=== PATIENT | female | born 1990 | race Caucasian/White ===

== ENCOUNTER 2023-10-01 09:55 | Emergency (ER) | payer BC, SELFPAY ==
[2023-10-01 09:56] VITALS: BP 119/65; PULSE 98; RESP 23; TEMP 36.2; O2SAT 100; BMI 23.8
--- NOTE | 2023-10-01 10:15 | EX.ED.DYSGE1 ---
HPI History of Present Illness Chief Complaint: Allergic Reaction Detail of Chief Complaint: Reported allergy to mold Informant: patient Onset/Context/Timing Onset: Hours Context: Sudden Onset Timing: Continuous Quality: Shortness of breath and tightness in chest Location: This occurred at work Current Severity: Moderate Maximum Severity: Moderate Worsened by: Exposure to mold Relieved by: Nothing Associated Symptoms Associated Symptoms: Patient states shortly after she noted the mold in felt tightness in her ch Narrative Narrative: Patient is a 32-year-old woman with allergy to mold. She was at work. There was broken bottles of tomato sauce that had mold growing on them. When she saw the mold she developed shortness of breath and chest tightness. She took a Benadryl. She presents because of paresthesia that is perioral, both hands and feet. She denies swelling of her lips, tongue or throat. She denies GI symptoms. She denies dermatologic lesions. Patient is second trimester . She receives her OB care through [facility]. 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 She does not know the name of her OB. Prior similar symptoms: Yes Recent Illness/Hospitalization: No PFSH PFSH Medical History no medical history Allergy/AdvReac Type Severity Reaction Status Date / Time mold Allergy COUGH Verified 10/01/23 10:01 Social History Smoking Status: Unknown if ever smoked ROS ROS ED Constitutional Constitutional ED: Denies chills or fever(s) Cardiovascular Cardiovascular: Denies orthopnea, palpitations, paroxysmal nocturnal dyspnea or racing heartbeat Respiratory/Chest Respiratory/Chest: Reports dyspnea; Denies cough, dyspnea on exertion, orthopnea or paroxysmal nocturnal dyspnea Gastrointestinal Gastrointestinal: Denies abdominal pain, diarrhea, nausea or vomiting Musculoskeletal Musculoskeletal: Denies back pain or neck pain Integumentary Denies rash Neurologic Neurologic: Reports paresthesias RUE, RLE, LUE and LLE and other Details: And perioral. Psychiatric Psychiatric: Reports anxiety Hematologic/Lymphatic Hematologic/Lymphatic: Reports systems reviewed and no addt'l complaints, except as documented EXAM Physical Exam Const Vital Signs: 10/01/23 09:56 Temperature 97.1 F L Temperature Source Oral Pulse Rate 98 Respiratory Rate 23 H Blood Pressure 119/65 Blood Pressure Mean 83 Pulse Ox 100 Oxygen Delivery Method Room Air Positive well nourished and well developed General Appearance ED: well developed, NAD and pallor; Negative for cyanotic or diaphoretic HEENT Reports moist mucous membranes HEENT Narrative: Head is atraumatic and. Ears normal. Nares patent. There is piercings noted. There is no evidence of angioedema i.e. spinal lips, tongue posterior pharynx or uvula. Patient has bilateral's Chvostek sign. Eyes PERRL and EOMs intact bilaterally General Eye ED: Negative for pale conjunctiva or scleral icterus Neck no lymphadenopathy, supple and no JVD Neck Narrative: Trachea is midline. There is no inspiratory expiratory stridor. Chest Wall inspection of chest normal Resp normal respiratory effort and clear to auscultation bilaterally Cardio regular rate, regular rhythm, S1 normal heart sound, S2 normal heart sound and no murmurs Extremity normal to inspection Extremity Narrative: There is no clubbing or cyanosis noted. General Extremety ED: Negative for edema or tenderness General Extremity: Negative for edema Neuro oriented x3 and CN's II-XII intact bilaterally Sensorium / Orientation: alert Psych Mood & Affect: anxious Skin no rashes or lesions noted, no wounds and skin turgor normal General Skin Exam: elasticity normal and pallor; Negative for jaundice MDM MDM MDM Narrative Medical decision making narrative: Patient presents with exposure to mold with mold allergy. Presently she has no systemic findings suggestive of an allergic reaction. Presently in my opinion patient is hyperventilating since she has a positive Chvostek sign and is hyperreflexic. There is no clonus or Babinski sign noted. Will observe patient. In my opinion there is no need for any treatment at this time. History & Record Review Additional record(s) reviewed:: No prior records Treatment and Re-Evaluation :: Patient was observed until 1140. Patient's vitals are normal. Patient was told that she was hyperventilating. She disagrees with me. I informed her that I have no objective findings for allergic reaction. I cannot say that her symptoms were was or was not an allergic reaction. Discharge Plan Triage Chief Complaint: Allergic Reaction ED Provider: Jozef Salgado Dx/Rx/DC Orders Clinical Impression: Hypoventilation syndrome, Exposure to mold Instructions: ED Hyperventilation Syndrome Stand Alone Forms: ED Work / School Excuse Primary Care Provider: Care Physician,No Primary Referrals: Syed Kirkland MD [Med Staff - Food Service Associate] - 1-2 Weeks Care Physician,No Primary [Primary Care Provider] - Print Language: Maltese Disposition Disposition: Home, Self Care
[2023-10-01 11:52] VITALS: BP 113/83; PULSE 64; RESP 16; TEMP 36.1; O2SAT 98
== END 2023-10-01 11:53 | disposition home or self-care (01) ==
PROVIDERS: Emergency Provider Emergency Medicine; Visit Provider Emergency Medicine
DX: O99.891 Other specified diseases and conditions complicating pregnancy (principal); R06.89 Other abnormalities of breathing; Z77.120 Contact with and (suspected) exposure to mold (toxic); Z3A.00 Weeks of gestation of pregnancy not specified
CPT/HCPCS: 99282; A4216

== ENCOUNTER → 2024-11-04 | Outpatient (CLI) | payer BC, SELFPAY ==
--- NOTE | 2024-11-04 10:50 | MRI_ITS ---
PROCEDURE: SPINE LUMBAR (ROUTINE) 11/04/2024 REASON FOR EXAM: LUMBAR DDD AND LUMBAR RADICULOPATHY TECHNIQUE: Procedure Code: MRISPL Modality: MR Procedure: SPINE LUMBAR (ROUTINE) COMPARISON: none FINDINGS: Straightened lumbar lordosis denoting myospasm. The examined vertebrae bodies and posterior neural arches show no fracture or dislocation. Preserved lumbar vertebral bodies height. Reduced height and bright T2 WI signal of L5-S1 disc with Modio II changes of its vertebral end plates. Evidence of left L5 laminar fenestration. T12-L1: There is no focal disc pathology, central canal stenosis or neural foraminal stenosis. L1-L2: There is no focal disc pathology, central canal stenosis or neural foraminal stenosis. L2-L3: There is no focal disc pathology, central canal stenosis or neural foraminal stenosis. L3-L4: There is no focal disc pathology, central canal stenosis or neural foraminal stenosis. L4-L5: There is no focal disc pathology, central canal stenosis or neural foraminal stenosis. L5-S1: a diffuse disc bulge with 2.2 mm left foraminal disc protrusion seen indenting the theca and encroaching upon the related neural exit foramina inducing moderate left and mild right exiting nerve roots compression. The lower thoracic spinal cord, conus medullaris, and cauda equina nerve roots are unremarkable. No marrow infiltrative lesions. Paravertebral soft tissue is unremarkable. No developmental canal stenosis. MRI/Spine Lumbar (Routine) IMPRESSION: Straightened lumbar lordosis denoting myospasm. No vertebral fractures or dislocation. L5-S1: a diffuse disc bulge with 2.2 mm left foraminal disc protrusion inducing moderate left and mild right exiting nerve roots compression. Reading [facility]
== END | disposition home or self-care (01) ==
LOC: MRI 10:12
PROVIDERS: PCP Nurse Practitioner Adult Health; Referring Provider Clinical Nurse Specialist Adult Health; Visit Provider Clinical Nurse Specialist Adult Health
DX: M51.16 Intervertebral disc disorders with radiculopathy, lumbar region (principal)
CPT/HCPCS: 72148